=== PATIENT | male | born 1985 | race Hispanic/Latino ===

== ENCOUNTER 2019-12-26 05:34 | Emergency (ER) | payer OTHER ==
[2019-12-26] MEDS ORDERED: MORPHINE SULFATE 4 MG/1ML SYG ONE (06:03)
== END 2019-12-26 09:21 | disposition home or self-care (01) ==
LOC: EDH 05:34
DX: S20.212A Contusion of left front wall of thorax, initial encounter (principal); W18.39XA Other fall on same level, initial encounter; Y93.89 Activity, other specified; Y92.89 Other specified places as the place of occurrence of the external cause; Y99.8 Other external cause status
CPT/HCPCS: 71101; 99283; J2270